=== PATIENT | female | born 1950 ===

== ENCOUNTER 2022-02-19 07:41 | Inpatient (IN) | payer OTHER ==
[~2022-02-19] VITALS: Ht 170.2 cm; Wt 111.1 kg
[2022-02-19] MEDS ORDERED: IRBESARTAN-HCT1 EACH PO (08:38)
[2022-02-19] MEDS ORDERED: TOPROL XL25 M1 PO (08:38)
[2022-02-19] MEDS ORDERED: DAFLONEX-XL 11300 MG PO (08:39)
[2022-02-23] MEDS ORDERED: ROSUVASTATIN CA20 MG (10:51)
[2022-02-23] MEDS ORDERED: OMEPRAZOLE20 MG (10:51)
[2022-02-23] MEDS ORDERED: METOPROLOL SUCC50 MG (10:51)
[2022-02-23] MEDS ORDERED: GABAPENTIN600 MG (10:51)
[2022-02-23] MEDS ORDERED: LATANOPROST2.5 ML (10:51)
[2022-02-23] MEDS ORDERED: BETAMETHASONE V15 GM (10:51)
[2022-02-23] MEDS ORDERED: CLOBETASOL PROP15 GM (10:51)
[2022-02-23] MEDS ORDERED: CLOTRIMAZOLE-BE15 G1 (10:51)
[2022-02-23] MEDS ORDERED: ALPRAZOLAM1 MG (10:51)
[2022-02-25] MEDS ORDERED: DUI500 PO (08:22)
[2022-02-25] MEDS ORDERED: ELIQUIS2.5 MG PO (08:22)
[2022-02-25] MEDS ORDERED: PERCOCET 5-3251 EACH PO (08:22)
== END 2022-02-25 16:21 | disposition home or self-care (01) | DRG 470 ==
LOC: SURG 02-23 05:20 → O/R 02-23 05:20 → SURG 02-23 07:00
PROVIDERS: ADMIT Orthopaedic Surgery; ATTEND Orthopaedic Surgery
PROC: 0SRC0J9 Replacement of Right Knee Joint with Synthetic Substitute, Cemented, Open Approach (ICD-10-PCS; principal; 2022-02-23 07:00)
DX: M17.11 Unilateral primary osteoarthritis, right knee (principal); M22.11 Recurrent subluxation of patella, right knee; I10 Essential (primary) hypertension; Z20.822 Contact with and (suspected) exposure to COVID-19